=== PATIENT | male | born 1935 | race Caucasian/White ===

== ENCOUNTER 2016-02-05 07:55 | Outpatient (RCR) | payer MEDICARE ==
[~2016-02-05 07:55] MED LIST: BACL10TA PO; FURO-124 PO; POTA20TA15 PO; PRAV40TA2 PO; SERT50TA2 PO; TAMS-8 PO; WARF4TAB PO
[2016-02-05 08:17] LABS: BASOPHILS % (AUTO) 0 % (0-2); EOSINOPHILS # (AUTO) 0.1 10^3uL; EOSINOPHILS % (AUTO) 1 % (0-4); LYMPHOCYTES # (AUTO) 1.6 X10^3; MEAN CORPUSCULAR HGB CONC 34.8 g/dL (31.0-37.0); MEAN CORPUSCULAR VOLUME 94 FL (80-100); MEAN PLATELET VOLUME 9.4 FL (6.0-9.5); MONOCYTES # (AUTO) 0.6 X10^3; MONOCYTES % (AUTO) 7 % (3-11); NEUTROPHILS # (AUTO) 7.4 X10^3; NEUTROPHILS % (AUTO) 76 % (51-67); PLATELET COUNT 191 10^3uL (150-450); WHITE BLOOD COUNT 9.73 10^3uL (4.0-11.0)
[2016-02-05 08:23] LABS: MEAN CORPUSCULAR HEMOGLOBIN 32.8 PG (26.0-34.0)
[2016-02-05 09:11] LABS: ALBUMIN 3.3 g/dL (3.4-5.0); ANION GAP 13.6 MEQ/L (3-15); CALCULATED IONIZED CALCIUM 4.1 mg/dL (3.8-4.6); TOTAL PROTEIN 6.6 g/dL (6.4-8.5)
[2016-02-12 10:19] LABS: BASOPHILS % (AUTO) 1 % (0-2); EOSINOPHILS # (AUTO) 0.1 10^3uL; EOSINOPHILS % (AUTO) 3 % (0-4); LYMPHOCYTES # (AUTO) 1.2 X10^3; MEAN CORPUSCULAR HGB CONC 34.9 g/dL (31.0-37.0); MEAN CORPUSCULAR VOLUME 93 FL (80-100); MEAN PLATELET VOLUME 8.9 FL (6.0-9.5); MONOCYTES # (AUTO) 0.4 X10^3; MONOCYTES % (AUTO) 9 % (3-11); NEUTROPHILS # (AUTO) 2.6 X10^3; NEUTROPHILS % (AUTO) 60 % (51-67); PLATELET COUNT 183 10^3uL (150-450); WHITE BLOOD COUNT 4.25 10^3uL (4.0-11.0)
[2016-02-12 10:20] LABS: MEAN CORPUSCULAR HEMOGLOBIN 32.6 PG (26.0-34.0)
[2016-02-12 11:00] LABS: ALBUMIN 2.8 g/dL (3.4-5.0); ANION GAP 12.5 MEQ/L (3-15); CALCULATED IONIZED CALCIUM 4.1 mg/dL (3.8-4.6); TOTAL PROTEIN 5.9 g/dL (6.4-8.5)
[2016-02-19 08:31] LABS: BASOPHILS % (AUTO) 1 % (0-2); EOSINOPHILS # (AUTO) 0.2 10^3uL; EOSINOPHILS % (AUTO) 5 % (0-4); LYMPHOCYTES # (AUTO) 0.8 X10^3; MEAN CORPUSCULAR VOLUME 95 FL (80-100); MEAN PLATELET VOLUME 9.1 FL (6.0-9.5); MONOCYTES # (AUTO) 0.5 X10^3; MONOCYTES % (AUTO) 12 % (3-11); NEUTROPHILS # (AUTO) 2.8 X10^3; NEUTROPHILS % (AUTO) 64 % (51-67); PLATELET COUNT 166 10^3uL (150-450); WHITE BLOOD COUNT 4.33 10^3uL (4.0-11.0)
[2016-02-19 08:36] LABS: MEAN CORPUSCULAR HEMOGLOBIN 32.2 PG (26.0-34.0)
[2016-02-19 08:47] LABS: ALBUMIN 3.3 g/dL (3.4-5.0); ANION GAP 14.2 MEQ/L (3-15); CALCULATED IONIZED CALCIUM 3.8 mg/dL (3.8-4.6)
[2016-02-26 10:14] LABS: MEAN CORPUSCULAR HGB CONC 34.3 g/dL (31.0-37.0); MEAN CORPUSCULAR VOLUME 94 FL (80-100); MEAN PLATELET VOLUME 8.7 FL (6.0-9.5); PLATELET COUNT 286 10^3uL (150-450); WHITE BLOOD COUNT 2.96 10^3uL (4.0-11.0)
[2016-02-26 10:20] LABS: MEAN CORPUSCULAR HEMOGLOBIN 32.3 PG (26.0-34.0)
[2016-02-26 10:29] LABS: BAND NEUTROPHILS % 1 % (0-6); EOSINOPHILS % 3 % (0-4); LYMPHOCYTES # 0.7 #; MONOCYTES # 0.1 #; MONOCYTES % 5 % (3-11); SEGMENTED NEUTROPHILS % 66 % (51-67); TOTAL CELLS COUNTED 100
[2016-02-26 10:30] LABS: RBC MORPH NORMAL (NORMAL)
[2016-02-26 10:47] LABS: ALBUMIN 2.8 g/dL (3.4-5.0); ANION GAP 14.7 MEQ/L (3-15); CALCULATED IONIZED CALCIUM 4.4 mg/dL (3.8-4.6); PHOSPHORUS 1.6 mg/dL (2.4-4.9)
[2016-03-04 08:10] LABS: MEAN CORPUSCULAR VOLUME 96 FL (80-100); MEAN PLATELET VOLUME 9.5 FL (6.0-9.5); PLATELET COUNT 176 10^3uL (150-450); WHITE BLOOD COUNT 4.75 10^3uL (4.0-11.0)
[2016-03-04 08:24] LABS: MEAN CORPUSCULAR HEMOGLOBIN 32.6 PG (26.0-34.0)
[2016-03-04 08:39] LABS: ANION GAP 14.9 MEQ/L (3-15); CALCULATED IONIZED CALCIUM 4.1 mg/dL (3.8-4.6); TOTAL PROTEIN 6.2 g/dL (6.4-8.5)
[2016-03-04 08:45] LABS: BAND NEUTROPHILS % 0 % (0-6); EOSINOPHILS % 4 % (0-4); LYMPHOCYTES # 0.9 #; MONOCYTES # 0.6 #; MONOCYTES % 16 % (3-11); SEGMENTED NEUTROPHILS % 60 % (51-67); TOTAL CELLS COUNTED 100
[2016-03-04 08:46] LABS: RBC MORPH NORMAL (NORMAL)
[2016-03-11 08:17] LABS: BASOPHILS % (AUTO) 3 % (0-2); EOSINOPHILS # (AUTO) 0.5 10^3uL; EOSINOPHILS % (AUTO) 9 % (0-4); MEAN CORPUSCULAR HGB CONC 33.8 g/dL (31.0-37.0); MEAN CORPUSCULAR VOLUME 95 FL (80-100); MEAN PLATELET VOLUME 9.3 FL (6.0-9.5); MONOCYTES # (AUTO) 0.7 X10^3; MONOCYTES % (AUTO) 14 % (3-11); NEUTROPHILS # (AUTO) 2.8 X10^3; NEUTROPHILS % (AUTO) 53 % (51-67); PLATELET COUNT 385 10^3uL (150-450); WHITE BLOOD COUNT 5.16 10^3uL (4.0-11.0)
[2016-03-11 08:18] LABS: MEAN CORPUSCULAR HEMOGLOBIN 32.1 PG (26.0-34.0)
[2016-03-11 08:28] LABS: ALBUMIN 3.7 g/dL (3.4-5.0); ALKALINE PHOSPHATASE 108 U/L (38-126); BUN/CREATININE RATIO 11 (10-20); TOTAL PROTEIN 7.5 g/dL (6.4-8.5)
[2016-03-18 08:18] LABS: BASOPHILS % (AUTO) 2 % (0-2); EOSINOPHILS # (AUTO) 0.4 10^3uL; EOSINOPHILS % (AUTO) 8 % (0-4); LYMPHOCYTES # (AUTO) 1.6 X10^3; MEAN CORPUSCULAR HGB CONC 34.2 g/dL (31.0-37.0); MEAN CORPUSCULAR VOLUME 93 FL (80-100); MEAN PLATELET VOLUME 9.2 FL (6.0-9.5); MONOCYTES # (AUTO) 0.2 X10^3; MONOCYTES % (AUTO) 3 % (3-11); NEUTROPHILS # (AUTO) 3.2 X10^3; NEUTROPHILS % (AUTO) 58 % (51-67); PLATELET COUNT 305 10^3uL (150-450)
[2016-03-18 08:55] LABS: ALBUMIN 3.3 g/dL (3.4-5.0); ANION GAP 16.3 MEQ/L (3-15); CALCULATED IONIZED CALCIUM 4.3 mg/dL (3.8-4.6); TOTAL PROTEIN 6.6 g/dL (6.4-8.5)
[2016-03-18 09:03] LABS: MEAN CORPUSCULAR HEMOGLOBIN 31.9 PG (26.0-34.0)
[2016-03-25 08:14] LABS: BASOPHILS % (AUTO) 2 % (0-2); EOSINOPHILS # (AUTO) 0.3 10^3uL; EOSINOPHILS % (AUTO) 6 % (0-4); LYMPHOCYTES # (AUTO) 1.2 X10^3; MEAN CORPUSCULAR HGB CONC 32.8 g/dL (31.0-37.0); MEAN CORPUSCULAR VOLUME 97 FL (80-100); MEAN PLATELET VOLUME 9.5 FL (6.0-9.5); MONOCYTES # (AUTO) 0.6 X10^3; MONOCYTES % (AUTO) 13 % (3-11); NEUTROPHILS # (AUTO) 2.3 X10^3; NEUTROPHILS % (AUTO) 52 % (51-67); PLATELET COUNT 173 10^3uL (150-450); WHITE BLOOD COUNT 4.48 10^3uL (4.0-11.0)
[2016-03-25 08:20] LABS: MEAN CORPUSCULAR HEMOGLOBIN 31.6 PG (26.0-34.0)
[2016-03-25 10:11] LABS: ALBUMIN 3.3 g/dL (3.4-5.0); ANION GAP 16.5 MEQ/L (3-15); CALCULATED IONIZED CALCIUM 4.2 mg/dL (3.8-4.6); TOTAL PROTEIN 6.9 g/dL (6.4-8.5)
[2016-04-01 08:17] LABS: BASOPHILS % (AUTO) 2 % (0-2); EOSINOPHILS # (AUTO) 0.4 10^3uL; EOSINOPHILS % (AUTO) 9 % (0-4); LYMPHOCYTES # (AUTO) 1.1 X10^3; MEAN CORPUSCULAR HGB CONC 32.8 g/dL (31.0-37.0); MEAN PLATELET VOLUME 9.8 FL (6.0-9.5); MONOCYTES # (AUTO) 0.6 X10^3; MONOCYTES % (AUTO) 14 % (3-11); NEUTROPHILS # (AUTO) 2.2 X10^3; NEUTROPHILS % (AUTO) 51 % (51-67); PLATELET COUNT 224 10^3uL (150-450); WHITE BLOOD COUNT 4.41 10^3uL (4.0-11.0)
[2016-04-01 08:29] LABS: MEAN CORPUSCULAR HEMOGLOBIN 32.5 PG (26.0-34.0); MEAN CORPUSCULAR VOLUME 99 FL (80-100)
[2016-04-01 08:33] LABS: ALBUMIN 3.6 g/dL (3.4-5.0); ANION GAP 14.2 MEQ/L (3-15); CALCULATED IONIZED CALCIUM 4.2 mg/dL (3.8-4.6); TOTAL PROTEIN 6.3 g/dL (6.4-8.5)
[2016-04-23 08:18] LABS: MEAN CORPUSCULAR HGB CONC 32.8 g/dL (31.0-37.0); MEAN CORPUSCULAR VOLUME 97 FL (80-100); MEAN PLATELET VOLUME 9.6 FL (6.0-9.5); PLATELET COUNT 259 10^3uL (150-450); WHITE BLOOD COUNT 4.11 10^3uL (4.0-11.0)
[2016-04-23 08:27] LABS: MEAN CORPUSCULAR HEMOGLOBIN 31.9 PG (26.0-34.0)
[2016-04-23 08:38] LABS: BAND NEUTROPHILS % 0 % (0-6); EOSINOPHILS % 3 % (0-4); LYMPHOCYTES # 1.2 #; MONOCYTES # 0.4 #; MONOCYTES % 11 % (3-11); RBC MORPH NORMAL (NORMAL); SEGMENTED NEUTROPHILS % 56 % (51-67); TOTAL CELLS COUNTED 100
[2016-04-30 08:24] LABS: MEAN CORPUSCULAR HGB CONC 33.2 g/dL (31.0-37.0); MEAN PLATELET VOLUME 9.3 FL (6.0-9.5); PLATELET COUNT 211 10^3uL (150-450); WHITE BLOOD COUNT 3.38 10^3uL (4.0-11.0)
[2016-04-30 08:42] LABS: ALBUMIN 3.7 g/dL (3.4-5.0); ANION GAP 13.2 MEQ/L (3-15); CALCULATED IONIZED CALCIUM 4.5 mg/dL (3.8-4.6); MAGNESIUM* 2.2 mg/dL (1.6-2.3); PHOSPHORUS 2.7 mg/dL (2.4-4.9)
[2016-04-30 08:50] LABS: MEAN CORPUSCULAR HEMOGLOBIN 32.5 PG (26.0-34.0); MEAN CORPUSCULAR VOLUME 98 FL (80-100)
[2016-04-30 09:19] LABS: BAND NEUTROPHILS % 0 % (0-6); EOSINOPHILS % 3 % (0-4); MONOCYTES # 0.4 #; MONOCYTES % 13 % (3-11); RBC MORPH NORMAL (NORMAL); SEGMENTED NEUTROPHILS % 51 % (51-67); TOTAL CELLS COUNTED 100
== END 2016-05-05 | disposition home or self-care (01) ==
LOC: LAB 07:55
PROVIDERS: ATTEND Internal Medicine Hematology & Oncology
DX: C83.39 Diffuse large B-cell lymphoma, extranodal and solid organ sites (principal); Z85.72 Personal history of non-Hodgkin lymphomas
CPT/HCPCS: 36415; 80053; 83615; 83735; 84100; 85007; 85025; 85027; 85610

== ENCOUNTER 2016-05-06 08:05 | Outpatient (RCR) | payer MEDICARE ==
[2016-05-06 08:34] LABS: BASOPHILS % (AUTO) 1 % (0-2); EOSINOPHILS # (AUTO) 0.1 10^3uL; EOSINOPHILS % (AUTO) 3 % (0-4); MEAN CORPUSCULAR HGB CONC 33.3 g/dL (31.0-37.0); MEAN PLATELET VOLUME 9.3 FL (6.0-9.5); MONOCYTES # (AUTO) 0.5 X10^3; MONOCYTES % (AUTO) 12 % (3-11); NEUTROPHILS # (AUTO) 2.7 X10^3; NEUTROPHILS % (AUTO) 62 % (51-67); PLATELET COUNT 139 10^3uL (150-450); WHITE BLOOD COUNT 4.36 10^3uL (4.0-11.0)
[2016-05-06 08:36] LABS: MEAN CORPUSCULAR HEMOGLOBIN 32.6 PG (26.0-34.0); MEAN CORPUSCULAR VOLUME 98 FL (80-100)
[2016-05-13 08:21] LABS: BASOPHILS % (AUTO) 1 % (0-2); EOSINOPHILS # (AUTO) 0.1 10^3uL; EOSINOPHILS % (AUTO) 3 % (0-4); LYMPHOCYTES # (AUTO) 0.9 X10^3; MEAN CORPUSCULAR HGB CONC 33.7 g/dL (31.0-37.0); MEAN PLATELET VOLUME 9.7 FL (6.0-9.5); MONOCYTES # (AUTO) 0.5 X10^3; MONOCYTES % (AUTO) 14 % (3-11); NEUTROPHILS # (AUTO) 1.9 X10^3; NEUTROPHILS % (AUTO) 55 % (51-67); PLATELET COUNT 229 10^3uL (150-450); WHITE BLOOD COUNT 3.49 10^3uL (4.0-11.0)
[2016-05-13 08:26] LABS: MEAN CORPUSCULAR HEMOGLOBIN 32.9 PG (26.0-34.0); MEAN CORPUSCULAR VOLUME 98 FL (80-100)
[2016-05-20 08:15] LABS: MEAN PLATELET VOLUME 9.5 FL (6.0-9.5); PLATELET COUNT 209 10^3uL (150-450); WHITE BLOOD COUNT 3.25 10^3uL (4.0-11.0)
[2016-05-20 08:19] LABS: MEAN CORPUSCULAR HEMOGLOBIN 33.2 PG (26.0-34.0); MEAN CORPUSCULAR VOLUME 98 FL (80-100)
[2016-05-20 08:30] LABS: BAND NEUTROPHILS % 0 % (0-6); EOSINOPHILS % 1 % (0-4); LYMPHOCYTES # 1.4 #; MONOCYTES # 0.2 #; MONOCYTES % 7 % (3-11); RBC MORPH NORMAL (NORMAL); SEGMENTED NEUTROPHILS % 46 % (51-67); TOTAL CELLS COUNTED 100
[2016-05-20 08:31] LABS: ALBUMIN 3.7 g/dL (3.4-5.0); CALCULATED IONIZED CALCIUM 4.2 mg/dL (3.8-4.6); MAGNESIUM* 2.1 mg/dL (1.6-2.3); TOTAL PROTEIN 6.5 g/dL (6.4-8.5)
== END 2016-08-04 | disposition home or self-care (01) ==
LOC: LAB 08:05
PROVIDERS: ATTEND Internal Medicine Hematology & Oncology
DX: Z85.72 Personal history of non-Hodgkin lymphomas (principal); C83.39 Diffuse large B-cell lymphoma, extranodal and solid organ sites; Z79.01 Long term (current) use of anticoagulants
CPT/HCPCS: 36415; 80053; 83615; 83735; 84100; 85007; 85025; 85027; 85610

== ENCOUNTER 2016-08-05 08:14 | Outpatient (RCR) | payer MEDICARE ==
[2016-08-05 08:16] LABS: MEAN CORPUSCULAR HGB CONC 33.4 g/dL (31.0-37.0); MEAN CORPUSCULAR VOLUME 95 FL (80-100); MEAN PLATELET VOLUME 9.6 FL (6.0-9.5); PLATELET COUNT 188 10^3uL (150-450); WHITE BLOOD COUNT 4.14 10^3uL (4.0-11.0)
[2016-08-05 08:24] LABS: MEAN CORPUSCULAR HEMOGLOBIN 31.8 PG (26.0-34.0)
[2016-08-05 08:39] LABS: BAND NEUTROPHILS % 0 % (0-6); EOSINOPHILS % 4 % (0-4); LYMPHOCYTES # 1.3 #; MONOCYTES # 0.5 #; MONOCYTES % 13 % (3-11); RBC MORPH NORMAL (NORMAL); SEGMENTED NEUTROPHILS % 49 % (51-67); TOTAL CELLS COUNTED 100
[2016-08-05 08:45] LABS: ALBUMIN 3.9 g/dL (3.4-5.0); ANION GAP 14.8 MEQ/L (3-15); MAGNESIUM* 2.1 mg/dL (1.6-2.3); TOTAL PROTEIN 6.9 g/dL (6.4-8.5)
== END 2016-09-25 19:20 | disposition home or self-care (01) ==
LOC: LAB 08:14
PROVIDERS: ATTEND Internal Medicine Hematology & Oncology
DX: C83.39 Diffuse large B-cell lymphoma, extranodal and solid organ sites (principal); Z85.72 Personal history of non-Hodgkin lymphomas
CPT/HCPCS: 36415; 80053; 83615; 83735; 84100; 85007; 85027; 85610

== ENCOUNTER → 2016-08-06 | Outpatient (CLI) | payer MEDICARE ==
--- NOTE | 2016-08-06 14:04 | Diagnostic Imaging Report ---
PROCEDURE: MR imaging of the brain with and without contrast. TECHNIQUE: Multiplanar, multisequence MR imaging of the brain was performed with and without contrast. INDICATION: Non-Hodgkin's lymphoma. COMPARISON: None available. FINDINGS: No restricted diffusion to indicate acute infarct or recurrent tumor. 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 The degree of surrounding T2/FLAIR hyperintensity in the left centrum semiovale and dickerson radiata is similar and likely due to gliosis. No new foci of gradient blooming hypointensity. No hydrocephalus or midline shift. The previously noted T1 hyperintense and minimal enhancing focus in the right thalamus has completely resolved. No new intrinsic T1 hyperintense lesions. Post contrast imaging demonstrates no new foci of enhancement. Stable susceptibility artifact in the left frontal calvarial region, likely from prior craniotomy/gab hole. Generalized cerebral atrophy is similar. Major arterial flow voids are preserved. 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 Suprasellar region is unremarkable. No Chiari malformation. No sagging of the midbrain. Minimal mucosal thickening in the right frontal sinus is unchanged. No new paranasal sinus disease. Mastoid air cells are clear. Orbits are normal. No focal calvarial lesion. IMPRESSION: 1. No evidence of recurrent [employer] lymphoma. 2. Previously noted T1 hyperintense and minimal enhancing lesion in the right thalamus has completely resolved. 3. 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 Dictated by: Dictated on workstation # [id number]
== END ==
LOC: RAD 11:42
PROVIDERS: ATTEND Internal Medicine Hematology & Oncology
DX: C83.39 Diffuse large B-cell lymphoma, extranodal and solid organ sites (principal); Z85.72 Personal history of non-Hodgkin lymphomas
CPT/HCPCS: 70553; A9579

== ENCOUNTER → 2016-09-20 | Outpatient (CLI) | payer MEDICARE ==
--- NOTE | 2016-09-20 13:32 | Diagnostic Imaging Report ---
PROCEDURE: MRI pelvis with and without contrast. TECHNIQUE: Multiplanar, multisequence MRI of the pelvis was performed with and without contrast. INDICATION: An 81-year-old male with right SI joint pain. COMPARISON: None available. FINDINGS: No focal marrow-replacing process or sacral insufficiency fracture. The SI joints are symmetric without ankylosis. No active or chronic marginal erosions. No bone marrow edema or enhancement to indicate osteitis. No fluid within the synovial portions of the SI joints. Lumbosacral plexus is normal where visualized. Partially imaged degenerative disc disease in the lower lumbar spine. No significant spinal stenosis. Mild trabeculated wall thickening of the urinary bladder with prostatomegaly is likely due to chronic partial bladder outlet obstruction. No pelvic lymphadenopathy. IMPRESSION: 1. No acute or chronic sacroiliitis. 2. No fluid or abnormal synovial enhancement within inferior synovial compartment of the SI joints to indicate active synovitis. 3. No sacral insufficiency fracture or marrow-replacing process. 4. Partially imaged degenerative disc disease in the lower lumbar spine without high-grade spinal stenosis. Dictated by: Dictated on workstation # [id number]
== END ==
LOC: RAD 09:23
PROVIDERS: ATTEND Family Medicine
DX: M65.851 Other synovitis and tenosynovitis, right thigh (principal)
CPT/HCPCS: 72197; A9579